=== PATIENT | female | born 1960 | race Caucasian/White ===

== ENCOUNTER → 2016-03-10 | Outpatient (CLI) | payer OTHER ==
--- NOTE | 2016-03-10 12:16 | REPMRS ---
Patient History The patient states she had a clinical breast exam in 03/10 Patient is postmenopausal and is nulliparous. No known family history of cancer. Digital Woman Screen Mammo: March 10, 2016 - Exam #: [id number] Bilateral CC and MLO view(s) were taken. Technologist: Nancy Herrera, Technologist Prior study comparison: February 05, 2015, digital woman screen mammo performed at [facility]. July 15, 2010, digital bilateral screening mammo, performed at [facility]. April 03, 2009, digital bilateral screening mammo, performed at [facility]. FINDINGS: There are scattered fibroglandular densities. There has been no change in the appearance of the mammogram from the prior studies. There is a mild amount of scattered fibroglandular density which is fairly symmetric. There is no interval development of dominant mass, architectural distortion, or clustered microcalcification suggestive of malignancy. ASSESSMENT: BI-RADS/ACR category 1 mammogram. Negative. Recommendation Routine screening mammogram in 1 year (for women over age 40). This mammogram was interpreted with the aid of an FDA-approved computer-aided dectection system. Electronically Signed By: Ludwin Bentley MD 03/10/16 4425
== END ==
LOC: M WHC 11:00
PROVIDERS: ATTEND Family Medicine
DX: Z12.39 Encounter for other screening for malignant neoplasm of breast (principal)

== ENCOUNTER → 2016-07-28 | Outpatient (REF) | payer OTHER | LOC: M SFHCPLAZ 13:25 | PROVIDERS: ATTEND Family Medicine | DX: E03.9 Hypothyroidism, unspecified (principal) ==

== ENCOUNTER → 2016-09-15 | Outpatient (CLI) | payer OTHER ==
[2016-09-15 11:41] LABS: FREE T4 1.35 NG/DL (0.76-1.46)
--- NOTE | 2016-09-16 01:37 | REP ---
Clinical: Spondylosis. Technique: AP, lateral, flexion/extension, bilateral oblique, and open-mouth views of the cervical spine. Comparison: 01/10/2013. Findings: Alignment and lordosis maintained. No acute fracture / compression injury or subluxation. Advanced multilevel degenerative disc osteophyte complexes noted predominantly at C4-5, C5-6, C6-7 levels. Findings include osteophytosis, endplate sclerosis/irregularity with disc space narrowing and uncovertebral hypertrophy. Open mouth view demonstrates normal C1-C2 articulation and odontoid process. Impression: Advanced degenerative changes at C4-5 through C6-7. Signed by Rocco Kam MD 09/16/2016 01:28 A
== END ==
LOC: M LAB 10:19
PROVIDERS: ATTEND Family Medicine
DX: M43.02 Spondylolysis, cervical region (principal); M50.30 Other cervical disc degeneration, unspecified cervical region

== ENCOUNTER 2017-03-30 10:45 | Outpatient (RCR) | payer OTHER | END 2017-04-21 | LOC: M PT 10:45 | DX: Z51.89 Encounter for other specified aftercare (principal); M43.02 Spondylolysis, cervical region; M47.816 Spondylosis without myelopathy or radiculopathy, lumbar region | CPT/HCPCS: 97010 ==

== ENCOUNTER 2017-04-27 15:49 | Outpatient (RCR) | payer OTHER | END 2017-05-22 | LOC: M PT 05-04 10:59 | DX: Z51.89 Encounter for other specified aftercare (principal); M43.02 Spondylolysis, cervical region; M47.816 Spondylosis without myelopathy or radiculopathy, lumbar region | CPT/HCPCS: 97010 ==

== ENCOUNTER 2017-05-25 14:27 | Outpatient (RCR) | payer OTHER | END 2017-06-21 | LOC: M PT 14:27 | DX: Z51.89 Encounter for other specified aftercare (principal); M43.02 Spondylolysis, cervical region; M47.816 Spondylosis without myelopathy or radiculopathy, lumbar region | CPT/HCPCS: 97010 ==

== ENCOUNTER 2017-08-20 15:30 | Emergency (ER) | payer OTHER, MEDICAID | END 2017-08-20 18:11 | disposition home or self-care (01) | LOC: M ED 15:30 | DX: J06.9 Acute upper respiratory infection, unspecified (principal); Z87.891 Personal history of nicotine dependence; Z79.899 Other long term (current) drug therapy | CPT/HCPCS: 99282 ==

== ENCOUNTER → 2017-11-02 | Outpatient (CLI) | payer OTHER ==
[2017-11-02 12:31] LABS: ALBUMIN 3.8 GM/DL (3.2-5.2); ALKALINE PHOSPHATASE 70 U/L (45-117); ALT/SGPT 16 U/L (12-78); ANION GAP 7 MEQ/L (8-16); AST/SGOT 22 U/L (7-37); BILIRUBIN,TOTAL 0.4 MG/DL (0.2-1.0); BLOOD UREA NITROGEN 16 MG/DL (7-18); C REACTIVE PROTEIN QUANTITATIV < 0.30 MG/DL (0.00-0.30); CARBON DIOXIDE LEVEL 25 MEQ/L (21-32); CHLORIDE LEVEL 107 MEQ/L (98-107); CHOLESTEROL LEVEL 228 MG/DL (<200); CHOLESTEROL RISK RATIO 2.533 (<5); CREATININE FOR GFR 0.67 MG/DL (0.55-1.30); FREE T4 1.36 NG/DL (0.76-1.46); GLOMERULAR FILTRATION RATE > 60.0 (>51); GLUCOSE, FASTING 84 MG/DL (70-100); HDL CHOLESTEROL 90 MG/DL (>40); LDL CHOLESTEROL 122 MG/DL (<100); NON-HDL-C 138 MG/DL; POTASSIUM SERUM 4.2 MEQ/L (3.5-5.1); PTH INTACT 63.2 PG/ML (18.5-88.0); SODIUM LEVEL 139 MEQ/L (136-145); THYROID STIMULATING HORMONE 0.391 uIU/ML (0.358-3.740); TRIGLYCERIDES LEVEL 80 MG/DL (<150)
[2017-11-02 13:59] LABS: ALBUMIN/GLOBULIN RATIO 1.19 (1.00-1.93)
== END ==
LOC: M LAB 10:21
DX: E55.9 Vitamin D deficiency, unspecified (principal); E03.9 Hypothyroidism, unspecified
CPT/HCPCS: 84443

== ENCOUNTER 2018-02-01 07:27 | Day surgery (SDC) | payer OTHER ==
[~2018-02-01] VITALS: Ht 157.5 cm; Wt 74.4 kg
[~2018-02-01 07:27] MED LIST: CALC500T36 PO; FLON1SPR NARES; LEVO100T5 PO; MUCI600T31 PO; MUCI600T37 PO; MULTCAP PO; NS 1,000 ML IV ONE; VITA2000 PO; VITA500C24 PO; VITATAB11 PO; ZITHTAB PO
[2018-02-01] MEDS ORDERED: PROPOFOL 200 MG/20 ML VIAL As Ordered ONE (08:21)
--- NOTE | 2018-02-01 08:36 | ROOR ---
Patient Name: Melly Terrell Procedure Date: 02/01/2018 8:19 AM Date of : 1960 Age: 57 Room: [facility] Gender: Female Note Status: Finalized Procedure: Colonoscopy Indications: Screening for colorectal malignant neoplasm Providers: Daniel VIEIRA MD Referring MD: Parvez Squires MD Requesting Provider: Medicines: Monitored Anesthesia Care Complications: No immediate complications. Procedure: Pre-Anesthesia Assessment: - The heart rate, respiratory rate, oxygen saturations, blood pressure, adequacy of pulmonary ventilation, and response to care were monitored throughout the procedure. The Colonoscope was introduced through the anus and advanced to the terminal ileum, with identification of the appendiceal orifice and IC valve. The colonoscopy was performed without difficulty. The patient tolerated the procedure well. The quality of the bowel preparation was excellent. Findings: The perianal and digital rectal examinations were normal. A few diverticula were found in the sigmoid colon. The entire examined colon appeared normal on direct and retroflexion views. Retroflexion in the right colon was performed. Impression: - Mild diverticulosis in the sigmoid colon. - The entire colon is otherwise normal on direct and retroflexion views. - No specimens collected. Recommendation: - Repeat colonoscopy in 10 years for screening purposes. Daniel Vieira MD Daniel VIEIRA MD 02/01/2018 8:35:54 AM This report has been signed electronically. Number of Addenda: 0 Note Initiated On: 02/01/2018 8:19 AM Estimated Blood Loss: Estimated blood loss: none.
[2018-02-01 09:05] VITALS: BP 114/58
== END 2018-02-01 09:16 | disposition home or self-care (01) ==
LOC: M OPP 07:27
PROVIDERS: ATTEND Internal Medicine Gastroenterology
DX: K57.30 Diverticulosis of large intestine without perforation or abscess without bleeding (principal); Z12.11 Encounter for screening for malignant neoplasm of colon

== ENCOUNTER → 2018-02-19 | Outpatient (CLI) | payer OTHER ==
[~2018-02-19] MED LIST changes: -NS 1,000 ML IV ONE
[2018-02-19 09:56] LABS: FREE T4 1.16 NG/DL (0.76-1.46); THYROID STIMULATING HORMONE 1.09 uIU/ML (0.358-3.740)
== END ==
LOC: M LAB 08:31
PROVIDERS: ATTEND Family Medicine
DX: E03.9 Hypothyroidism, unspecified (principal)

== ENCOUNTER → 2018-03-15 | Outpatient (CLI) | payer OTHER ==
--- NOTE | 2018-03-15 15:34 | REPMRS ---
Patient History The patient states she has not had a clinical breast exam in over a year. Patient is postmenopausal and is nulliparous. No known family history of cancer. No Hormone Replacement Therapy Digital Woman Screen Mammo: March 15, 2018 - Exam #: [id number] Bilateral CC and MLO view(s) were taken. Technologist: Stephanie Brown, Technologist Prior study comparison: March 10, 2016, digital woman screen mammo performed at [facility]. February 05, 2015, digital woman screen mammo performed at [facility]. July 15, 2010, digital bilateral screening mammo, performed at [facility]. FINDINGS: There are scattered fibroglandular densities. There are two stable benign nodules in the left lateral breast. There has been no change in the appearance of the mammogram from the prior studies. There is a mild amount of scattered fibroglandular density which is fairly symmetric. There is no interval development of dominant mass, architectural distortion, or clustered microcalcification suggestive of malignancy. 3-D tomosynthesis shows no additional findings. Assessment: BI-RADS/ACR category 2 mammogram. Benign Findings. Recommendation Routine screening mammogram of both breasts in 1 year (for women over age 40). This patient's Lifetime Breast Cancer RIsk is estimated at 10.9 %. This mammogram was interpreted with the aid of an FDA-approved computer-aided dectection system. Electronically Signed By: Ludwin Bentley MD 03/15/18 5827
== END ==
LOC: M WHC 11:37
PROVIDERS: ATTEND Family Medicine
DX: Z12.31 Encounter for screening mammogram for malignant neoplasm of breast (principal); Z78.0 Asymptomatic menopausal state; N63.20 Unspecified lump in the left breast, unspecified quadrant

== ENCOUNTER → 2018-08-23 | Outpatient (CLI) | payer OTHER ==
[~2018-08-23] MED LIST changes: -CALC500T36 PO; +CALC500T61 PO
--- NOTE | 2018-08-30 13:33 | DEXA ---
AP SPINE L1 - L4 1.067 -1.0 0.1 LT FEMUR TOTAL 0.993 -0.1 0.8 LT NECK 0.888 -1.1 0.1 RT FEMUR TOTAL 0.936 -0.6 0.3 RT NECK 0.848 -1.4 -0.2 TOTAL BODY TOTAL OTHER COMMENTS: There is low bone density of the spine and hips. The increased density of the left hip does not represent a significant change. The increased density of the right hip does not represent a significant change. The density of the spine has decreased 6.3% since the initial exam on 09/04/2009. The spine density has increased 0.0% since the most recent exam on 02/26/2015. The density of the left hip has decreased 3.3% since the initial exam on 09/04/2009. The density of the left hip has increased 1.3% since the most recent exam on 02/26/2015. The density of the right hip has decreased 1.0% since the initial exam on 09/04/2009. The density of the right hip has increased 1.2% since the most recent exam on 02/26/2015. FOLLOW-UP: Recommendation for the next bone density exam: 2 years. BIBI
== END ==
LOC: M WHC 10:28
PROVIDERS: ATTEND Family Medicine
DX: M85.851 Other specified disorders of bone density and structure, right thigh (principal); M85.852 Other specified disorders of bone density and structure, left thigh; M85.88 Other specified disorders of bone density and structure, other site

== ENCOUNTER 2018-10-10 17:02 | Emergency (ER) | payer OTHER ==
[~2018-10-10] VITALS: Ht 157.5 cm; Wt 75.0 kg
[2018-10-10 21:01] VITALS: BP 132/81
[2018-10-10] MEDS ORDERED: PRED10TA2 PO (21:03)
[2018-10-10] MEDS ORDERED: diphenhydrAMINE 25 MG CAP PO ONE (21:15)
[2018-10-10] MEDS ORDERED: HYDROCORTISONE 1% CREAM 30 GM TOP ONE (21:15)
[2018-10-10] MEDS ORDERED: predniSONE 10 MG TAB PO ONE (21:15)
[2018-10-10] MEDS ORDERED: CETIRIZINE (ZyrTEC) 10 MG TAB PO ONE (21:15)
== END 2018-10-10 22:24 | disposition home or self-care (01) ==
LOC: M ED 17:02
DX: S80.861A Insect bite (nonvenomous), right lower leg, initial encounter (principal); W57.XXXA Bitten or stung by nonvenomous insect and other nonvenomous arthropods, initial encounter; Y92.89 Other specified places as the place of occurrence of the external cause; Z79.899 Other long term (current) drug therapy; Z79.890 Hormone replacement therapy; Z87.891 Personal history of nicotine dependence

== ENCOUNTER → 2019-08-08 | Outpatient (CLI) | payer OTHER ==
[~2019-08-08] MED LIST changes: +LEVO500T3; +MECL-86; +PRED10TA2 PO
[2019-08-08 15:11] LABS: BASO # 0.1 10^3/uL (0.0-0.2); BASO % 0.9 % (0.0-1.0); EOS # 0.1 10^3/uL (0.0-0.5); EOS % 1.5 % (0.0-3.0); HEMATOCRIT 40.8 % (36.0-47.0); LYMPH # 2.3 10^3/uL (1.5-5.0); LYMPH % 33.8 % (24.0-44.0); MEAN CORPUSCULAR HEMOGLOBIN 28.8 pg (27.0-33.0); MEAN CORPUSCULAR HGB CONC 31.9 g/dl (32.0-36.5); MEAN CORPUSCULAR VOLUME 90.5 fl (80.0-96.0); MONO # 0.5 10^3/uL (0.0-0.8); MONO % 6.8 % (0.0-5.0); NEUTROPHILS # 3.9 10^3/uL (1.5-8.5); NEUTROPHILS % 56.7 % (36.0-66.0); PLATELET COUNT, AUTOMATED 262 10^3/uL (150-450); RED BLOOD COUNT 4.51 10^6/uL (4.00-5.40); WHITE BLOOD COUNT 6.8 10^3/uL (4.0-10.0)
[2019-08-08 15:31] LABS: HEMOGLOBIN A1c 5.6 %
[2019-08-08 15:41] LABS: ALBUMIN 3.8 GM/DL (3.2-5.2); ALT/SGPT 21 U/L (12-78); BILIRUBIN,TOTAL 0.3 MG/DL (0.2-1.0); BLOOD UREA NITROGEN 14 MG/DL (7-18); CALCIUM LEVEL 9.2 MG/DL (8.8-10.2); CARBON DIOXIDE LEVEL 29 MEQ/L (21-32); CHLORIDE LEVEL 103 MEQ/L (98-107); CHOLESTEROL LEVEL 245 MG/DL (<200); CHOLESTEROL RISK RATIO 3.223 (<5); CREATININE FOR GFR 0.76 MG/DL (0.55-1.30); FREE T4 1.39 NG/DL (0.76-1.46); GLOMERULAR FILTRATION RATE > 60.0 (>45); GLUCOSE, FASTING 81 MG/DL (70-100); HDL CHOLESTEROL 76 MG/DL (>40); LDL CHOLESTEROL 143 MG/DL (<100); NON-HDL-C 169 MG/DL; POTASSIUM SERUM 4.5 MEQ/L (3.5-5.1); SODIUM LEVEL 138 MEQ/L (136-145); THYROID STIMULATING HORMONE 0.262 uIU/ML (0.358-3.740); TOTAL PROTEIN 7.4 GM/DL (6.4-8.2); TRIGLYCERIDES LEVEL 128 MG/DL (<150)
[2019-08-08 15:44] LABS: PTH INTACT 60.4 PG/ML (18.5-88.0); TOTAL 25(OH) VITAMIN D 51.6 NG/ML (30.0-100.0); VITAMIN B12 LEVEL 1618 PG/ML (247-911)
== END ==
LOC: M PLALAB 12:16
PROVIDERS: ATTEND Family Medicine
DX: E78.00 Pure hypercholesterolemia, unspecified (principal); E55.9 Vitamin D deficiency, unspecified; E03.9 Hypothyroidism, unspecified

== ENCOUNTER → 2019-10-17 | Outpatient (CLI) | payer OTHER ==
[~2019-10-17] MED LIST changes: -LEVO500T3; -MECL-86
--- NOTE | 2019-10-18 16:11 | REPMRS ---
Patient History The patient states she has not had a clinical breast exam in over a year. No known family history of cancer. No Hormone Replacement Therapy Digital Woman Screen Mammo: October 17, 2019 - Exam #: [id number] Bilateral CC and MLO view(s) were taken. Technologist: Linda Sanders, Technologist Prior study comparison: March 15, 2018, bilateral digital woman screen mammo performed at [facility]. March 10, 2016, digital woman screen mammo performed at [facility]. February 05, 2015, digital woman screen mammo performed at [facility]. FINDINGS: There are scattered fibroglandular densities. The Volpara volumetric breast density category is:B. There has been no change in the appearance of the mammogram from the prior studies. There is a mild amount of scattered fibroglandular density which is fairly symmetric. There is no interval development of dominant mass, architectural distortion, or grouped microcalcification suggestive of malignancy. 3-D tomosynthesis shows no additional findings. Assessment: BI-RADS/ACR category 1 mammogram. Negative Mammogram. Recommendation Routine screening mammogram of both breasts in 1 year (for women over age 40). This patient's Lifetime Breast Cancer Risk is estimated at 10.3 %. This mammogram was interpreted with the aid of an FDA-approved computer-aided dectection system. Electronically Signed By: Ludwin Bentley MD 10/18/19 1726
== END ==
LOC: M WHC 11:02
PROVIDERS: ATTEND Family Medicine
DX: Z12.31 Encounter for screening mammogram for malignant neoplasm of breast (principal)

== ENCOUNTER 2020-02-12 11:56 | Emergency (ER) | payer OTHER ==
[~2020-02-12] VITALS: Ht 157.5 cm; Wt 72.7 kg
[2020-02-12] MEDS ORDERED: MECL-86 (12:20)
[2020-02-12] MEDS ORDERED: LEVO500T3 (12:20)
--- NOTE | 2020-02-12 13:27 | REP ---
INDICATION: CVA - Nursing interventions must not delay CT COMPARISON: None. TECHNIQUE: Axial noncontrast images from the skull base to the thoracic inlet with coronal reformations. This CT examination was performed using the following dose reduction techniques: Automated exposure control, adjustment of mA and/or kv according to the patient's size, and use of iterative reconstruction technique. FINDINGS: Age-related atrophy and microvascular ischemic changes are appreciated. The ventricles and sulci are symmetric. Welch-white differentiation is maintained. There is no evidence for acute intracranial hemorrhage, mass/mass effect, pathology or infarction. No extra-axial fluid collection. Calvarium is intact. Paranasal sinuses and mastoid air cells are clear. IMPRESSION: Age related atrophy and microvascular ischemic changes. No acute intracranial hemorrhage, infarction, or mass/mass effect. <Electronically signed by Rocco Kam > 02/12/20 [id number]
--- NOTE | 2020-02-12 15:13 | REP ---
INDICATION: CVA. COMPARISON: None. TECHNIQUE: SINGLE PORTABLE AP VIEW OF THE CHEST WAS PERFORMED. FINDINGS: THERE IS NO ACUTE INFILTRATE OR PULMONARY EDEMA. LUNGS ARE CLEAR. HEART IS NOT SIGNIFICANTLY ENLARGED. MEDIASTINAL SILHOUETTE IS UNREMARKABLE. THE VISUALIZED OSSEOUS STRUCTURES ARE INTACT. IMPRESSION: NO ACUTE PULMONARY DISEASE. <Electronically signed by Sandro Welch > 02/12/20 [id number]
[2020-02-12 15:59] LABS: BASO # 0.1 10^3/uL (0.0-0.2); BASO % 0.7 % (0.0-1.0); EOS # 0.3 10^3/uL (0.0-0.5); EOS % 2.9 % (0.0-3.0); HEMATOCRIT 43.4 % (36.0-47.0); HEMOGLOBIN 13.5 g/dl (12.0-15.5); LYMPH # 3.1 10^3/uL (1.5-5.0); LYMPH % 31.8 % (24.0-44.0); MEAN CORPUSCULAR HEMOGLOBIN 28.1 pg (27.0-33.0); MEAN CORPUSCULAR HGB CONC 31.1 g/dl (32.0-36.5); MEAN CORPUSCULAR VOLUME 90.2 fl (80.0-96.0); MONO # 0.6 10^3/uL (0.0-0.8); MONO % 5.8 % (0.0-5.0); NEUTROPHILS # 5.8 10^3/uL (1.5-8.5); NEUTROPHILS % 58.5 % (36.0-66.0); PLATELET COUNT, AUTOMATED 306 10^3/uL (150-450); RED BLOOD COUNT 4.81 10^6/uL (4.00-5.40); WHITE BLOOD COUNT 9.9 10^3/uL (4.0-10.0)
[2020-02-12] MEDS: diazePAM 2 MG TAB PO ONE ×2 (16:00→16:48)
[2020-02-12 16:16] LABS: INR 0.89; PROTHROMBIN TIME 12.2 SECONDS (12.5-14.3)
[2020-02-12 16:17] LABS: PARTIAL THROMBOPLASTIN TIME 29.4 SECONDS (24.2-38.5)
[2020-02-12 17:29] LABS: BLOOD UREA NITROGEN 14 MG/DL (7-18); CREATININE FOR GFR 0.85 MG/DL (0.55-1.30); GLUCOSE, FASTING 82 MG/DL (70-100)
[2020-02-12 17:30] LABS: CALCIUM LEVEL 9.1 MG/DL (8.8-10.2); CARBON DIOXIDE LEVEL 27 MEQ/L (21-32); CHLORIDE LEVEL 106 MEQ/L (98-107); CK-MB VALUE MASS 2.2 NG/ML (<3.6); CPK CREATINE PHOSPHOKINASE 66 U/L (26-192); FREE T4 1.57 NG/DL (0.76-1.46); GLOMERULAR FILTRATION RATE > 60.0 (>45); MB/CK RELATIVE INDEX 3.33 (< OR =4); POTASSIUM SERUM 4.1 MEQ/L (3.5-5.1); SODIUM LEVEL 140 MEQ/L (136-145); TROPONIN I < 0.02 NG/ML (< 0.10)
[2020-02-12] MEDS ORDERED: ISOVUE-370 76% 100ML VIAL As Ordered ONE (17:42)
--- NOTE | 2020-02-12 18:45 | REPVR ---
PROCEDURE INFORMATION: Exam: CT Angiography Head With Contrast Exam date and time: 02/12/2020 4:44 PM Age: 59 years old Clinical indication: Dizziness and giddiness TECHNIQUE: Imaging protocol: Computed tomography angiography of the head with intravenous contrast. 3D rendering (Not supervised by radiologist): MIP and/or 3D reconstructed images were created by the technologist. Radiation optimization: All CT scans at this facility use at least one of these dose optimization techniques: automated exposure control; mA and/or kV adjustment per patient size (includes targeted exams where dose is matched to clinical indication); or iterative reconstruction. Contrast material: ISOVUE 370; Contrast volume: 100 ml; Contrast route: INTRAVENOUS (IV); COMPARISON: CT Head without contrast 02/12/2020 1:15 PM FINDINGS: Ventricles, cisterns and sulci are symmetric and appropriate for age. No intracranial mass or focal mass effect. No intracranial hemorrhage, midline shift or acute territorial infarct. Anterior circulation: Normal contrast opacification and luminal caliber in the petrous, cavernous and supraclinoid internal carotid arteries. Normal appearance of the anterior cerebral artery branches and middle cerebral artery branches through the MCA trifurcations. No occlusion, high-grade focal stenosis or dissection. No aneurysm. Posterior circulation: Normal distal vertebral arteries, with patent normal caliber basilar artery, and normal superior cerebellar and posterior cerebral arteries. No occlusion, high-grade stenosis or aneurysm. Dural sinuses enhance normally. Bony structures show no acute fracture or destructive process. IMPRESSION: Unremarkable CT Angiogram of the head and [place] of [place]. Electronically signed by: Felipe Meyers On 02/12/2020 18:45:27 PM
--- NOTE | 2020-02-12 18:55 | REPVR ---
PROCEDURE INFORMATION: Exam: CT Angiography Neck With Contrast Exam date and time: 02/12/2020 4:44 PM Age: 59 years old Clinical indication: Dizziness and giddiness TECHNIQUE: Imaging protocol: Computed tomography angiography of the neck with intravenous contrast. 3D rendering (Not supervised by radiologist): MIP and/or 3D reconstructed images were created by the technologist. Radiation optimization: All CT scans at this facility use at least one of these dose optimization techniques: automated exposure control; mA and/or kV adjustment per patient size (includes targeted exams where dose is matched to clinical indication); or iterative reconstruction. Contrast material: ISOVUE 370; Contrast volume: 100 ml; Contrast route: INTRAVENOUS (IV); COMPARISON: Thyroid, ST head+neck US 08/06/2015 11:44 AM FINDINGS: Right common carotid, cervical ICA and proximal ECA demonstrate contrast opacification with no occlusion, flow limiting stenosis, or intimal flap to suggest dissection. Left common carotid, cervical ICA and proximal ECA demonstrate contrast opacification, with no occlusion, flow limiting stenosis, or intimal flap to suggest dissection. Vertebral arteries demonstrate normal course to the level of the skull base and show no occlusion, flow limiting stenosis or dissection. No flow limiting stenosis or anomaly of the great vessel origins. No concerning asymmetric neck soft tissue abnormality. Multi-level cervical degenerative disc and articular pillar arthropathy is present. IMPRESSION: Unremarkable CT Angiogram of the neck. REFERENCES: NASCET CRITERIA. The degree of internal carotid artery stenosis is based on NASCET criteria. Normal is no stenosis. Mild is less than 50% stenosis. Moderate is 50-69% stenosis. Severe is 70% to 99% stenosis. Total occlusion is no detectable patent lumen. Electronically signed by: Felipe Meyers On 02/12/2020 18:55:26 PM
--- NOTE | 2020-02-12 20:08 | REPVR ---
PROCEDURE INFORMATION: Exam: MR Head Without Contrast Exam date and time: 02/12/2020 7:53 PM Age: 59 years old Clinical indication: Dizziness TECHNIQUE: Imaging protocol: MR of the head without contrast. COMPARISON: CT Head without contrast 02/12/2020 1:15 PM FINDINGS: No abnormal restriction of diffusion to indicate acute CVA. Midline structures and cerebellar tonsillar position appear normal. Ventricles, cisterns and sulci are symmetric and normal for age. No intracranial mass, midline shift or abnormal extra-axial fluid. No acute intracranial hemorrhage. No abnormal white matter signal on FLAIR and T2 sequences. Optic chiasm and pituitary infundibulum appear normal. Normal vascular flow voids in major intracranial arteries and dural venous sinuses. Paranasal sinuses are normally aerated. Right mastoids are opacified. Optic globes and orbits are unremarkable. IMPRESSION: Unremarkable noncontrast MRI of the brain. Electronically signed by: Felipe Meyers On 02/12/2020 20:08:17 PM
[2020-02-12 21:18] VITALS: BP 121/76
--- NOTE | 2020-02-13 00:35 | ECGEPIP ---
[facility] - ED Test Date: 2020-02-12 Pat Name: ERIS LAM Department: Room: - Gender: Female Family Support Specialist: : 1960 Requested By: ELIZABET Castellano Order Number: [id number] Reading MD: Jared Lopez Measurements Intervals [place] Rate: 62 P: 60 NC: 152 QRS: 55 QRSD: 87 T: 59 QT: 414 QTc: 422 Interpretive Statements SINUS RHYTHM NO PRIORS FOR COMPARISON Electronically Signed on 02-13-2020 0:35:18 EST by Jared Lopez
== END 2020-02-12 21:21 | disposition home or self-care (01) ==
LOC: M ED 11:56
DX: R42 Dizziness and giddiness (principal); F33.9 Major depressive disorder, recurrent, unspecified; E03.9 Hypothyroidism, unspecified; Z79.899 Other long term (current) drug therapy; Z79.890 Hormone replacement therapy
CPT/HCPCS: 36415; 70450; 70496; 70498; 70551; 71045; 80048; 81001; 82550; 82553; 84439; 84443; 85025; 85610; 85730; 93005; 93041; 94760; 99284; Q9967

== ENCOUNTER → 2020-04-29 | Outpatient (REF) | payer OTHER ==
[~2020-04-29] MED LIST changes: +LEVO500T3; +MECL-86
== END ==
LOC: M SFHCWAGY 14:38
PROVIDERS: ATTEND Family Medicine
DX: L81.4 Other melanin hyperpigmentation (principal)

== ENCOUNTER 2020-07-11 09:54 | Outpatient (RCR) | payer OTHER | END 2020-07-22 | LOC: M PT 09:54 | PROVIDERS: ATTEND Physician Assistant | DX: H81.13 Benign paroxysmal vertigo, bilateral (principal) ==

== ENCOUNTER → 2020-07-31 | Outpatient (REF) | payer OTHER ==
[2020-07-31 16:44] LABS: ALBUMIN 3.7 GM/DL (3.2-5.2); ALT/SGPT 13 U/L (12-78); BILIRUBIN,TOTAL 0.2 MG/DL (0.2-1.0); BLOOD UREA NITROGEN 17 MG/DL (7-18); C REACTIVE PROTEIN QUANTITATIV 0.33 MG/DL (0.00-0.30); CARBON DIOXIDE LEVEL 28 MEQ/L (21-32); CHLORIDE LEVEL 104 MEQ/L (98-107); CHOLESTEROL LEVEL 244 MG/DL (<200); CHOLESTEROL RISK RATIO 2.711 (<5); CREATININE FOR GFR 0.66 MG/DL (0.55-1.30); GLOMERULAR FILTRATION RATE > 60.0 (>45); GLUCOSE, FASTING 85 MG/DL (70-100); HDL CHOLESTEROL 90 MG/DL (>40); LDL CHOLESTEROL 136 MG/DL (<100); NON-HDL-C 154 MG/DL; POTASSIUM SERUM 4.4 MEQ/L (3.5-5.1); PTH INTACT 70.5 PG/ML (18.5-88.0); SODIUM LEVEL 140 MEQ/L (136-145); TOTAL 25(OH) VITAMIN D 37.6 NG/ML (30.0-100.0); TOTAL PROTEIN 7.3 GM/DL (6.4-8.2); TRIGLYCERIDES LEVEL 89 MG/DL (<150)
[2020-07-31 20:09] LABS: HEMOGLOBIN A1c 5.5 %
== END ==
LOC: M SFHCPLAZ 09:49
PROVIDERS: ATTEND Physician Assistant
DX: S40.862A Insect bite (nonvenomous) of left upper arm, initial encounter (principal); W57.XXXA Bitten or stung by nonvenomous insect and other nonvenomous arthropods, initial encounter; R73.01 Impaired fasting glucose; E03.9 Hypothyroidism, unspecified; E55.9 Vitamin D deficiency, unspecified; E78.00 Pure hypercholesterolemia, unspecified

== ENCOUNTER → 2020-12-02 | Outpatient (CLI) | payer OTHER ==
--- NOTE | 2020-12-02 11:38 | REPMRS ---
Patient History The patient states she has not had a clinical breast exam in over a year. Patient is postmenopausal and is nulliparous. No known family history of cancer. No Hormone Replacement Therapy Tomosynthesis is performed. Volpara breast density [facility] b[facility] Patient states no breast complaints today. Patient has signed MRS History Sheet. Digital Woman Screen Mammo: December 02, 2020 - Exam #: [id number] Bilateral CC and MLO view(s) were taken. Technologist: RT Brandi Prior study comparison: October 17, 2019, bilateral digital woman screen mammo performed at [facility]. March 15, 2018, bilateral digital woman screen mammo performed at [facility]. FINDINGS: There are scattered fibroglandular densities. There has been no change in the appearance of the mammogram from the prior studies. There is a mild amount of residual fibroglandular tissue which is fairly symmetric. There is no interval development of dominant mass, architectural distortion, or clustered microcalcification suggestive of malignancy. Assessment: BI-RADS/ACR category 1 mammogram. Negative Mammogram. Recommendation Routine screening mammogram in 1 year (for women over age 40). This mammogram was interpreted with the aid of an FDA-approved computer-aided dectection system. Electronically Signed By: Sandro Welch MD 12/02/20 1850
== END ==
LOC: M WHC 10:44
PROVIDERS: ATTEND Family Medicine
DX: Z12.31 Encounter for screening mammogram for malignant neoplasm of breast (principal)

== ENCOUNTER → 2021-02-04 | Outpatient (CLI) | payer OTHER ==
[2021-02-04 14:13] LABS: FREE T4 1.21 NG/DL (0.76-1.46); THYROID STIMULATING HORMONE 2.03 uIU/ML (0.358-3.740)
== END ==
LOC: M PLALAB 10:07
PROVIDERS: ATTEND Family Medicine
DX: E03.9 Hypothyroidism, unspecified (principal)

== ENCOUNTER → 2021-09-10 | Outpatient (CLI) | payer OTHER ==
[~2021-09-10] MED LIST changes: -LEVO500T3; +LEVO500T4
[2021-09-10 16:09] LABS: CREATININE, URINE 40.6 MG/DL; MALB URINE SIEMENS < 5.0 MG/L; MAU/CREAT RATIO 12.3 MCG/MG (0.0-30.0)
[2021-09-12 13:10] LABS: INSULIN LEVEL 3.4 uIU/mL (2.6-24.9)
== END ==
LOC: M RAD 12:31
PROVIDERS: ATTEND Family Medicine
DX: M43.02 Spondylolysis, cervical region (principal); M43.04 Spondylolysis, thoracic region; E03.9 Hypothyroidism, unspecified; R73.01 Impaired fasting glucose; J30.9 Allergic rhinitis, unspecified; E78.00 Pure hypercholesterolemia, unspecified; E55.9 Vitamin D deficiency, unspecified

== ENCOUNTER → 2021-09-15 | Outpatient (REF) | payer OTHER ==
[2021-09-15 14:40] LABS: ALBUMIN 3.6 GM/DL (3.2-5.2); ALT/SGPT 13 U/L (12-78); BILIRUBIN,TOTAL 0.4 MG/DL (0.2-1.0); BLOOD UREA NITROGEN 14 MG/DL (7-18); C REACTIVE PROTEIN QUANTITATIV 0.44 MG/DL (0.00-0.30); CALCIUM LEVEL 9.4 MG/DL (8.8-10.2); CARBON DIOXIDE LEVEL 27 MEQ/L (21-32); CHLORIDE LEVEL 108 MEQ/L (98-107); CHOLESTEROL LEVEL 250 MG/DL (<200); CHOLESTEROL RISK RATIO 3.246 (<5); CREATININE FOR GFR 0.71 MG/DL (0.55-1.30); FREE T4 1.23 NG/DL (0.76-1.46); GLOMERULAR FILTRATION RATE > 60.0 (>45); GLUCOSE, FASTING 94 MG/DL (70-100); HDL CHOLESTEROL 77 MG/DL (>40); LDL CHOLESTEROL 154 MG/DL (<100); NON-HDL-C 173 MG/DL; POTASSIUM SERUM 4.9 MEQ/L (3.5-5.1); SODIUM LEVEL 141 MEQ/L (136-145); THYROID STIMULATING HORMONE 0.225 uIU/ML (0.358-3.740); TOTAL PROTEIN 6.7 GM/DL (6.4-8.2); TRIGLYCERIDES LEVEL 97 MG/DL (<150)
[2021-09-15 18:15] LABS: TOTAL 25(OH) VITAMIN D 63.8 NG/ML (30.0-100.0)
[2021-09-16 00:22] LABS: HEMOGLOBIN A1c 5.6 %
== END ==
LOC: M SFHCPLAZ 12:45
PROVIDERS: ATTEND Family Medicine
DX: E03.9 Hypothyroidism, unspecified (principal); E55.9 Vitamin D deficiency, unspecified; R73.01 Impaired fasting glucose

== ENCOUNTER → 2021-10-06 | Outpatient (CLI) | payer OTHER ==
[~2021-10-06] MED LIST changes: +LEVO1TAB39; -LEVO500T4
== END ==
LOC: M LAB 13:22
PROVIDERS: ATTEND Family Medicine
DX: J30.9 Allergic rhinitis, unspecified (principal); R73.01 Impaired fasting glucose; E55.9 Vitamin D deficiency, unspecified; E78.00 Pure hypercholesterolemia, unspecified

== ENCOUNTER → 2021-12-16 | Outpatient (CLI) | payer OTHER | LOC: M WHC 10:24 | PROVIDERS: ATTEND Family Medicine | DX: Z12.31 Encounter for screening mammogram for malignant neoplasm of breast (principal) ==

== ENCOUNTER → 2022-01-27 | Outpatient (CLI) | payer OTHER ==
[2022-01-27 14:39] LABS: CPK CREATINE PHOSPHOKINASE 38 U/L (34-145)
[2022-01-27 14:40] LABS: ALBUMIN 3.1 G/DL (3.2-5.2); ALKALINE PHOSPHATASE 65 U/L (46-116); ALT/SGPT 10 U/L (7.0-40); AST/SGOT 18 U/L (<34); BILIRUBIN,TOTAL 0.4 MG/DL (0.3-1.2); BLOOD UREA NITROGEN 14 MG/DL (9-23); CALCIUM LEVEL 8.7 MG/DL (8.3-10.6); CARBON DIOXIDE LEVEL 29 MMOL/L (20-31); CHLORIDE LEVEL 100 MMOL/L (98-107); CHOLESTEROL LEVEL 189 MG/DL (<200); CHOLESTEROL RISK RATIO 3.07 (<5); GLOMERULAR FILTRATION RATE > 60.0 (>45); GLUCOSE, FASTING 92 MG/DL (74-106); HDL CHOLESTEROL 61.4 MG/DL (>40); LDL CHOLESTEROL 110.8 MG/DL (<100); NON-HDL-C 128 MG/DL; POTASSIUM SERUM 4.8 MMOL/L (3.5-5.1); SODIUM LEVEL 137 MMOL/L (136-145); THYROID STIMULATING HORMONE 1.646 uIU/ML (0.55-4.78); TOTAL PROTEIN 6.6 G/DL (5.7-8.2); TRIGLYCERIDES LEVEL 84 MG/DL (<150)
[2022-01-27 14:41] LABS: FREE T4 1.45 NG/DL (0.89-1.76)
[2022-01-27 15:23] LABS: HEMOGLOBIN A1c 5.2 % (4.0-6.0)
[2022-01-28 08:09] LABS: APOLIPOPROTEIN B/A-1 RATIO 0.7 ratio (0.0-0.6); INSULIN LEVEL 4.3 uIU/mL (2.6-24.9)
== END ==
LOC: M PLALAB 10:09
PROVIDERS: ATTEND Family Medicine
DX: E03.9 Hypothyroidism, unspecified (principal); E55.9 Vitamin D deficiency, unspecified; E78.00 Pure hypercholesterolemia, unspecified; R73.01 Impaired fasting glucose

== ENCOUNTER → 2022-02-03 | Outpatient (CLI) | payer OTHER ==
[2022-02-03 11:55] LABS: BASO # 0.1 10^3/uL (0.0-0.2); BASO % 0.5 % (0.0-1.0); EOS # 0.1 10^3/uL (0.0-0.5); EOS % 0.9 % (0.0-3.0); HEMATOCRIT 37.9 % (36.0-47.0); HEMOGLOBIN 11.7 g/dl (12.0-15.5); LYMPH # 1.5 10^3/uL (1.5-5.0); MEAN CORPUSCULAR HEMOGLOBIN 27.1 pg (27.0-33.0); MEAN CORPUSCULAR HGB CONC 30.9 g/dl (32.0-36.5); MEAN CORPUSCULAR VOLUME 87.9 fl (80.0-96.0); MONO # 0.8 10^3/uL (0.0-0.8); MONO % 6.9 % (2.0-8.0); NEUTROPHILS # 8.5 10^3/uL (1.5-8.5); NEUTROPHILS % 77.3 % (36.0-66.0); PLATELET COUNT, AUTOMATED 444 10^3/uL (150-450); RED BLOOD COUNT 4.31 10^6/uL (4.00-5.40); WHITE BLOOD COUNT 10.9 10^3/uL (4.0-10.0)
[2022-02-03 12:27] LABS: ALBUMIN 2.9 G/DL (3.2-5.2); ALKALINE PHOSPHATASE 64 U/L (46-116); ALT/SGPT < 9 U/L (7.0-40); AST/SGOT 18 U/L (<34); BILIRUBIN,TOTAL 0.4 MG/DL (0.3-1.2); BLOOD UREA NITROGEN 15 MG/DL (9-23); CALCIUM LEVEL 8.7 MG/DL (8.3-10.6); CARBON DIOXIDE LEVEL 28 MMOL/L (20-31); CHLORIDE LEVEL 101 MMOL/L (98-107); CREATININE FOR GFR 0.77 MG/DL (0.55-1.30); GLOMERULAR FILTRATION RATE > 60.0 (>45); GLUCOSE, FASTING 86 MG/DL (74-106); POTASSIUM SERUM 4.6 MMOL/L (3.5-5.1); SODIUM LEVEL 137 MMOL/L (136-145); TOTAL PROTEIN 6.5 G/DL (5.7-8.2)
[2022-02-03 12:28] LABS: FREE T4 1.56 NG/DL (0.89-1.76)
[2022-02-03 12:41] LABS: ERYTHROCYTE SEDIMENTATION RATE 40 mm/hr (0-30)
[2022-02-03 13:57] LABS: MONO REFLEX EBV VCA IgM NEGATIVE (NEGATIVE)
[2022-02-04 16:09] LABS: EBV VIRAL CAPSID AG IgM <36.0 U/mL (0.0-35.9)
== END ==
LOC: M PLAIMG 09:03
PROVIDERS: ATTEND Physician Assistant
DX: R09.81 Nasal congestion (principal); R53.83 Other fatigue; R00.0 Tachycardia, unspecified; R10.9 Unspecified abdominal pain; E03.9 Hypothyroidism, unspecified

== ENCOUNTER → 2022-02-17 | Outpatient (CLI) | payer OTHER ==
[2022-02-17 15:22] LABS: BASO # 0.1 10^3/uL (0.0-0.2); BASO % 0.5 % (0.0-1.0); EOS % 0.1 % (0.0-3.0); HEMATOCRIT 39.1 % (36.0-47.0); HEMOGLOBIN 12.1 g/dl (12.0-15.5); LYMPH # 1.3 10^3/uL (1.5-5.0); LYMPH % 11.4 % (24.0-44.0); MEAN CORPUSCULAR HEMOGLOBIN 26.7 pg (27.0-33.0); MEAN CORPUSCULAR HGB CONC 30.9 g/dl (32.0-36.5); MEAN CORPUSCULAR VOLUME 86.1 fl (80.0-96.0); MONO # 0.7 10^3/uL (0.0-0.8); MONO % 5.7 % (2.0-8.0); NEUTROPHILS # 9.4 10^3/uL (1.5-8.5); PLATELET COUNT, AUTOMATED 562 10^3/uL (150-450); RED BLOOD COUNT 4.54 10^6/uL (4.00-5.40); WHITE BLOOD COUNT 11.5 10^3/uL (4.0-10.0)
[2022-02-17 15:33] LABS: ERYTHROCYTE SEDIMENTATION RATE 87 mm/hr (0-30)
[2022-02-17 15:48] LABS: ALBUMIN 2.7 G/DL (3.2-5.2); ALKALINE PHOSPHATASE 66 U/L (46-116); ALT/SGPT < 9 U/L (7.0-40); AST/SGOT 17 U/L (<34); BILIRUBIN,TOTAL 0.4 MG/DL (0.3-1.2); BLOOD UREA NITROGEN 13 MG/DL (9-23); CALCIUM LEVEL 8.8 MG/DL (8.3-10.6); CARBON DIOXIDE LEVEL 23 MMOL/L (20-31); CHLORIDE LEVEL 99 MMOL/L (98-107); CREATININE FOR GFR 0.59 MG/DL (0.55-1.30); GLOMERULAR FILTRATION RATE > 60.0 (>45); GLUCOSE, FASTING 71 MG/DL (74-106); POTASSIUM SERUM 4.7 MMOL/L (3.5-5.1); SODIUM LEVEL 136 MMOL/L (136-145); TOTAL PROTEIN 6.5 G/DL (5.7-8.2)
== END ==
LOC: M PLALAB 13:39 → M PLAIMG 13:39
PROVIDERS: ATTEND Family Medicine
DX: J90 Pleural effusion, not elsewhere classified (principal); J98.11 Atelectasis; J32.9 Chronic sinusitis, unspecified

== ENCOUNTER 2022-02-25 11:52 | Inpatient (IN) | payer OTHER ==
[~2022-02-25] VITALS: Ht 157.5 cm; Wt 73.9 kg
[~2022-02-25 11:52] MED LIST changes: -ASCO50TA PO; -CIPR500T39 PO; -FERR1TAB8 PO; -FURO20TA2 PO; -ISOVUE-370 76% 100ML VIAL As Ordered ONE; -LEVO1TAB40 PO; -MIRT1TAB16 PO; -PANT40TA29 PO; -POTA1TAB23 PO; -SENN-23 PO; -THERTAB52 PO; -VITA-168 PO
[2022-02-25 15:55] VITALS: BP 120/76
[2022-02-25 16:10] LABS: BASO # 0.1 10^3/uL (0.0-0.2); BASO % 0.7 % (0.0-1.0); EOS # 0.1 10^3/uL (0.0-0.5); EOS % 0.6 % (0.0-3.0); HEMATOCRIT 36.6 % (36.0-47.0); HEMOGLOBIN 11.6 g/dl (12.0-15.5); LYMPH # 1.3 10^3/uL (1.5-5.0); MEAN CORPUSCULAR HEMOGLOBIN 26.7 pg (27.0-33.0); MEAN CORPUSCULAR HGB CONC 31.7 g/dl (32.0-36.5); MEAN CORPUSCULAR VOLUME 84.1 fl (80.0-96.0); MONO # 0.9 10^3/uL (0.0-0.8); MONO % 7.6 % (2.0-8.0); NEUTROPHILS # 9.1 10^3/uL (1.5-8.5); NEUTROPHILS % 79.7 % (36.0-66.0); PLATELET COUNT, AUTOMATED 544 10^3/uL (150-450); RED BLOOD COUNT 4.35 10^6/uL (4.00-5.40); WHITE BLOOD COUNT 11.4 10^3/uL (4.0-10.0)
[2022-02-25 16:25] LABS: INR 1.13; PROTHROMBIN TIME 14.7 SECONDS (12.5-14.5)
[2022-02-25 16:33] LABS: ALBUMIN 2.4 G/DL (3.2-5.2); ALKALINE PHOSPHATASE 56 U/L (46-116); ALT/SGPT < 9 U/L (7.0-40); AST/SGOT 18 U/L (<34); BILIRUBIN,TOTAL 0.4 MG/DL (0.3-1.2); BLOOD UREA NITROGEN 8 MG/DL (9-23); CALCIUM LEVEL 8.7 MG/DL (8.3-10.6); CARBON DIOXIDE LEVEL 25 MMOL/L (20-31); CHLORIDE LEVEL 100 MMOL/L (98-107); CREATININE FOR GFR 0.65 MG/DL (0.55-1.30); GLOMERULAR FILTRATION RATE > 60.0 (>45); GLUCOSE, FASTING 88 MG/DL (74-106); POTASSIUM SERUM 4.1 MMOL/L (3.5-5.1); SODIUM LEVEL 137 MMOL/L (136-145); TOTAL PROTEIN 5.9 G/DL (5.7-8.2)
[2022-02-25 17:45] LABS: SOURCE, BODY FLUID ASCITES
[2022-02-25 17:46] LABS: APPEARANCE, BODY FLUID HAZY (CLEAR); ASCITES FL COLOR YELLOW (COLORLESS)
[2022-02-25 18:14] LABS: SOURCE, BODY FLUID ALBUMIN ASCITES
[2022-02-25 18:17] LABS: VENOUS BASE EXCESS 1.2 (-2.0-2.0); VENOUS HCO3 26.5 MEQ/L (23.0-27.0); VENOUS PARTIAL PRESSURE CO2 44.4 mmHg (38.0-50.0); VENOUS PARTIAL PRESSURE O2 41.3 mmHg (30.0-50.0); VENOUS PH 7.393 UNITS (7.330-7.430); VENOUS TOTAL CO2 27.8 MEQ/L (24.0-28.0)
[2022-02-25 18:18] LABS: SOURCE, BODY FLUID GLUCOSE ASCITES
[2022-02-25 18:21] LABS: SOURCE, BODY FLUID TOT PROTEIN ASCITES; TOTAL PROTEIN, BODY FLUID 4.3 G/DL (NOT ESTABLISHED)
[2022-02-25] MEDS ORDERED: LEVO1TAB40 PO (19:42)
[2022-02-25] MEDS ORDERED: THERTAB52 PO (19:42)
[2022-02-25] MEDS ORDERED: VITA-168 PO (19:44)
[2022-02-25] MEDS ORDERED: SENN-23 PO (19:47)
[2022-02-25] MEDS ORDERED: HOME MED LIST COMPLETE! XX SCH (19:50)
[2022-02-25 19:55] LABS: RSV AMPLIFICATION NEGATIVE (NEGATIVE)
[2022-02-25 19:56] VITALS: BP 101/66
[2022-02-25] MEDS ORDERED: PANT40TA29 PO (19:59)
[2022-02-25 20:00] VITALS: BP 100/64
[2022-02-26] VITALS (7 sets, daily range): BP systolic 97–119; BP diastolic 61–68
[2022-02-26 04:15] LABS: HEMOGLOBIN 10.5 g/dl (12.0-15.5); MEAN CORPUSCULAR HEMOGLOBIN 26.4 pg (27.0-33.0); MEAN CORPUSCULAR HGB CONC 31.8 g/dl (32.0-36.5); MEAN CORPUSCULAR VOLUME 82.9 fl (80.0-96.0); PLATELET COUNT, AUTOMATED 514 10^3/uL (150-450); RED BLOOD COUNT 3.98 10^6/uL (4.00-5.40); WHITE BLOOD COUNT 10.3 10^3/uL (4.0-10.0)
[2022-02-26] MEDS ORDERED: FLUTICASONE PROP 0.05% NASAL SPRAY 16 GM (FLONASE) NARES PRN (04:25)
[2022-02-26 04:37] LABS: BLOOD UREA NITROGEN 8 MG/DL (9-23); CALCIUM LEVEL 8.3 MG/DL (8.3-10.6); CARBON DIOXIDE LEVEL 26 MMOL/L (20-31); CHLORIDE LEVEL 101 MMOL/L (98-107); CREATININE FOR GFR 0.63 MG/DL (0.55-1.30); GLOMERULAR FILTRATION RATE > 60.0 (>45); GLUCOSE, FASTING 85 MG/DL (74-106); POTASSIUM SERUM 4.2 MMOL/L (3.5-5.1); SODIUM LEVEL 136 MMOL/L (136-145)
[2022-02-26] MEDS: LEVOTHYROXINE 100MCG TABLET (0.1MG) PO SCH (06:08)
[2022-02-26] MEDS: PANTOPRAZOLE 40MG TAB (PROTONIX) PO SCH (08:41)
[2022-02-26] MEDS: OYSTER SHELL CALCIUM 500 MG TAB PO SCH (08:41)
[2022-02-26] MEDS: cefTRIAXone SOD 1 GM in D5W MINI-BAG PLUS 50 ML IV SCH (08:41)
[2022-02-26] MEDS: VITAMIN D 1,000 INTERNATIONAL UNITS TABLET PO SCH (08:41)
[2022-02-26] MEDS ORDERED: ASCORBIC ACID 500 MG TAB PO SCH (09:00)
[2022-02-26 10:08] LABS: IRON (FE) 19 UG/DL (50-170); PERCENT SATURATION 9.4 % (13.2-45.0); TOTAL IRON BINDING CAPACITY 202 UG/DL (250-425)
[2022-02-26 10:10] LABS: FERRITIN 253.6 NG/ML (7.3-270.7); FOLATE > 24.0 NG/ML (>5.4)
[2022-02-26 10:13] LABS: VITAMIN B12 LEVEL > 2000 PG/ML (211-911)
[2022-02-26 15:39] LABS: PH BODY FLUID 7.596 UNITS (NOT ESTABLISHED); SOURCE, BODY FLUID pH PLEURAL
[2022-02-26 15:44] LABS: SOURCE, BODY FLUID PLEURAL
[2022-02-26 15:45] LABS: APPEARANCE, BODY FLUID HAZY (CLEAR); PLEURAL FL COLOR YELLOW (COLORLESS)
[2022-02-26 16:02] LABS: SOURCE, BODY FLUID GLUCOSE PLEURAL
[2022-02-26 16:04] LABS: AMYLASE, BODY FLUID < 20 U/L (NOT ESTABLISHED); LDH, BODY FLUID 340 U/L (NOT ESTABLISHED); SOURCE, BODY FLUID AMYLASE PLEURAL; SOURCE, BODY FLUID LDH PLEURAL
[2022-02-26 16:05] LABS: SOURCE, BODY FLUID TOT PROTEIN PLEURAL
[2022-02-26] MEDS ORDERED: RIVAROXABAN 10MG TAB (XARELTO) PO SCH (18:00)
[2022-02-27 01:00] VITALS: BP 102/59
[2022-02-27 02:51] VITALS: BP 97/59
[2022-02-27] MEDS: LEVOTHYROXINE 100MCG TABLET (0.1MG) PO SCH (06:00)
[2022-02-27 07:47] VITALS: BP 101/57
[2022-02-27 08:07] LABS: HEMATOCRIT 31.6 % (36.0-47.0); HEMOGLOBIN 10.2 g/dl (12.0-15.5); MEAN CORPUSCULAR HEMOGLOBIN 26.8 pg (27.0-33.0); MEAN CORPUSCULAR HGB CONC 32.3 g/dl (32.0-36.5); MEAN CORPUSCULAR VOLUME 83.2 fl (80.0-96.0); PLATELET COUNT, AUTOMATED 478 10^3/uL (150-450); WHITE BLOOD COUNT 9.9 10^3/uL (4.0-10.0)
[2022-02-27 08:31] LABS: BLOOD UREA NITROGEN 6 MG/DL (9-23); CALCIUM LEVEL 8.4 MG/DL (8.3-10.6); CARBON DIOXIDE LEVEL 26 MMOL/L (20-31); CHLORIDE LEVEL 103 MMOL/L (98-107); CREATININE FOR GFR 0.55 MG/DL (0.55-1.30); GLOMERULAR FILTRATION RATE > 60.0 (>45); GLUCOSE, FASTING 86 MG/DL (74-106); POTASSIUM SERUM 3.9 MMOL/L (3.5-5.1); SODIUM LEVEL 139 MMOL/L (136-145)
[2022-02-27] MEDS: VITAMIN D 1,000 INTERNATIONAL UNITS TABLET PO SCH (08:52)
[2022-02-27] MEDS: PANTOPRAZOLE 40MG TAB (PROTONIX) PO SCH (08:53)
[2022-02-27] MEDS: cefTRIAXone SOD 1 GM in D5W MINI-BAG PLUS 50 ML IV SCH (08:53)
[2022-02-27] MEDS ORDERED: ASCORBIC ACID 500 MG TAB PO SCH (09:00)
[2022-02-27] MEDS ORDERED: FERROUS SULFATE 325MG TAB PO SCH (09:00)
[2022-02-27] MEDS ORDERED: POTA1TAB23 PO (11:04)
[2022-02-27] MEDS ORDERED: CIPR500T39 PO (11:04)
[2022-02-27] MEDS ORDERED: FERR1TAB8 PO (11:04)
[2022-02-27] MEDS ORDERED: ASCO50TA PO (11:04)
[2022-02-27] MEDS ORDERED: FURO20TA2 PO (11:04)
[2022-02-27] MEDS ORDERED: MIRT1TAB16 PO (11:04)
[2022-02-27] MEDS: OYSTER SHELL CALCIUM 500 MG TAB PO SCH (11:17)
[2022-02-27 11:59] VITALS: BP 107/70
== END 2022-02-27 13:30 | disposition home or self-care (01) | DRG 143 ==
LOC: M PCU 15:08
PROVIDERS: ADMIT Family Medicine; ATTEND Family Medicine
PROC: 0W9G3ZZ Drainage of Peritoneal Cavity, Percutaneous Approach (ICD-10-PCS; principal; 2022-02-25 15:48)
PROC: 0W993ZZ Drainage of Right Pleural Cavity, Percutaneous Approach (ICD-10-PCS; 2022-02-26)
PROC: 30233J1 Transfusion of Nonautologous Serum Albumin into Peripheral Vein, Percutaneous Approach (ICD-10-PCS; 2022-02-26)
DX: J90 Pleural effusion, not elsewhere classified (principal); K65.2 Spontaneous bacterial peritonitis; R18.8 Other ascites; E03.9 Hypothyroidism, unspecified; R22.2 Localized swelling, mass and lump, trunk; D75.839 Thrombocytosis, unspecified; D50.9 Iron deficiency anemia, unspecified; L40.9 Psoriasis, unspecified; M43.02 Spondylolysis, cervical region; M85.88 Other specified disorders of bone density and structure, other site; E66.9 Obesity, unspecified; M79.2 Neuralgia and neuritis, unspecified; Z98.49 Cataract extraction status, unspecified eye; Z87.891 Personal history of nicotine dependence; Z79.890 Hormone replacement therapy; Z79.899 Other long term (current) drug therapy

== ENCOUNTER → 2022-02-25 | Outpatient (CLI) | payer OTHER ==
[~2022-02-25] MED LIST changes: +ASCO50TA PO; +CIPR500T39 PO; +FERR1TAB8 PO; +FURO20TA2 PO; +ISOVUE-370 76% 100ML VIAL As Ordered ONE; +LEVO1TAB40 PO; +MIRT1TAB16 PO; +PANT40TA29 PO; +POTA1TAB23 PO; +SENN-23 PO; +THERTAB52 PO; +VITA-168 PO
== END ==
LOC: M RAD 08:06
PROVIDERS: ATTEND Physician Assistant
DX: R06.02 Shortness of breath (principal); J18.9 Pneumonia, unspecified organism; R00.0 Tachycardia, unspecified; R79.82 Elevated C-reactive protein (CRP); J90 Pleural effusion, not elsewhere classified; R70.0 Elevated erythrocyte sedimentation rate; R14.0 Abdominal distension (gaseous); R10.84 Generalized abdominal pain

== ENCOUNTER → 2022-03-03 | Outpatient (CLI) | payer OTHER ==
[~2022-03-03] MED LIST changes: +ASCO50TA PO; +CIPR500T39 PO; +DEXA4TA; +FERR1TAB8 PO; +FURO20TA2 PO; +LEVO1TAB40 PO; +MIRT1TAB16 PO; +PANT40TA29 PO; +POTA1TAB23 PO; +SENN-23 PO; +THERTAB52 PO; +VITA-168 PO
[2022-03-03 14:07] LABS: BASO # 0.1 10^3/uL (0.0-0.2); EOS # 0.1 10^3/uL (0.0-0.5); EOS % 1.2 % (0.0-3.0); HEMATOCRIT 38.5 % (36.0-47.0); LYMPH # 1.3 10^3/uL (1.5-5.0); LYMPH % 12.1 % (24.0-44.0); MEAN CORPUSCULAR HEMOGLOBIN 26.1 pg (27.0-33.0); MEAN CORPUSCULAR HGB CONC 31.2 g/dl (32.0-36.5); MEAN CORPUSCULAR VOLUME 83.9 fl (80.0-96.0); MONO # 0.8 10^3/uL (0.0-0.8); MONO % 7.5 % (2.0-8.0); NEUTROPHILS # 8.1 10^3/uL (1.5-8.5); NEUTROPHILS % 77.8 % (36.0-66.0); PLATELET COUNT, AUTOMATED 450 10^3/uL (150-450); RED BLOOD COUNT 4.59 10^6/uL (4.00-5.40); WHITE BLOOD COUNT 10.4 10^3/uL (4.0-10.0)
[2022-03-03 14:51] LABS: MAGNESIUM LEVEL 1.8 MG/DL (1.8-2.4)
[2022-03-03 14:53] LABS: ALBUMIN 2.8 G/DL (3.2-5.2); ALKALINE PHOSPHATASE 57 U/L (46-116); ALT/SGPT < 9 U/L (7.0-40); AST/SGOT 19 U/L (<34); BILIRUBIN,TOTAL 0.4 MG/DL (0.3-1.2); BLOOD UREA NITROGEN 9 MG/DL (9-23); CALCIUM LEVEL 8.9 MG/DL (8.3-10.6); CARBON DIOXIDE LEVEL 26 MMOL/L (20-31); CHLORIDE LEVEL 99 MMOL/L (98-107); CREATININE FOR GFR 0.67 MG/DL (0.55-1.30); GLOMERULAR FILTRATION RATE > 60.0 (>45); GLUCOSE, FASTING 84 MG/DL (74-106); POTASSIUM SERUM 4.5 MMOL/L (3.5-5.1); SODIUM LEVEL 137 MMOL/L (136-145); TOTAL PROTEIN 6.2 G/DL (5.7-8.2)
== END ==
LOC: M PLALAB 11:44
PROVIDERS: ATTEND Family Medicine
DX: D50.9 Iron deficiency anemia, unspecified (principal); C56.1 Malignant neoplasm of right ovary; J90 Pleural effusion, not elsewhere classified; J98.11 Atelectasis

== ENCOUNTER → 2022-03-11 | Outpatient (REF) | payer OTHER ==
[2022-03-11 18:08] LABS: BASO # 0.1 10^3/uL (0.0-0.2); BASO % 0.7 % (0.0-1.0); EOS # 0.4 10^3/uL (0.0-0.5); EOS % 3.4 % (0.0-3.0); HEMATOCRIT 37.4 % (36.0-47.0); HEMOGLOBIN 11.4 g/dl (12.0-15.5); LYMPH % 16.3 % (24.0-44.0); MEAN CORPUSCULAR HEMOGLOBIN 26.1 pg (27.0-33.0); MEAN CORPUSCULAR HGB CONC 30.5 g/dl (32.0-36.5); MEAN CORPUSCULAR VOLUME 85.8 fl (80.0-96.0); MONO # 0.7 10^3/uL (0.0-0.8); NEUTROPHILS # 8.9 10^3/uL (1.5-8.5); PLATELET COUNT, AUTOMATED 465 10^3/uL (150-450); RED BLOOD COUNT 4.36 10^6/uL (4.00-5.40); WHITE BLOOD COUNT 12.2 10^3/uL (4.0-10.0)
[2022-03-11 18:15] LABS: INR 0.92; PROTHROMBIN TIME 12.6 SECONDS (12.5-14.5)
[2022-03-11 18:16] LABS: PARTIAL THROMBOPLASTIN TIME 24.9 SECONDS (24.8-34.2)
[2022-03-11 18:32] LABS: ALBUMIN 2.9 G/DL (3.2-5.2); ALKALINE PHOSPHATASE 63 U/L (46-116); ALT/SGPT 10 U/L (7.0-40); AST/SGOT 30 U/L (<34); BILIRUBIN,TOTAL 0.3 MG/DL (0.3-1.2); BLOOD UREA NITROGEN 13 MG/DL (9-23); CALCIUM LEVEL 8.8 MG/DL (8.3-10.6); CARBON DIOXIDE LEVEL 27 MMOL/L (20-31); CHLORIDE LEVEL 102 MMOL/L (98-107); CREATININE FOR GFR 0.71 MG/DL (0.55-1.30); GLOMERULAR FILTRATION RATE > 60.0 (>45); GLUCOSE, FASTING 87 MG/DL (74-106); POTASSIUM SERUM 4.2 MMOL/L (3.5-5.1); SODIUM LEVEL 138 MMOL/L (136-145); TOTAL PROTEIN 6.7 G/DL (5.7-8.2)
== END ==
LOC: M SFHCPLAZ 17:35
PROVIDERS: ATTEND Physician Assistant
DX: R14.0 Abdominal distension (gaseous) (principal)

== ENCOUNTER 2022-03-13 11:45 | Outpatient (CLI) | payer OTHER ==
[~2022-03-13] VITALS: Ht 157.5 cm; Wt 75.4 kg
[2022-03-13 11:45] VITALS: BP 107/64
[~2022-03-13 11:45] MED LIST changes: +ALBUTEROL SULFATE 2.5MG/0.5ML INH NEB SOLN INH PRN; +EPINEPHrine INJ 1 MG/ML 1ML AMP IM PRN; +IRON SUCROSE 500 MG in NS 250 ML OVER 4 HRS IV ONE; +NS 1,000 ML IV SCH; +diphenhydrAMINE 50MG/ML VIAL IV PRN; +methylPREDNISolone 125MG 2ML VIAL IV PRN
[2022-03-13 13:00] VITALS: BP 105/67
[2022-03-13 14:00] VITALS: BP 94/58
[2022-03-13 16:45] VITALS: BP 90/54
[2022-03-13 17:30] VITALS: BP 120/62
== END 2022-03-13 17:30 | disposition home or self-care (01) ==
LOC: M INFU 11:45
PROVIDERS: ATTEND Family Medicine
DX: D50.9 Iron deficiency anemia, unspecified (principal)
CPT/HCPCS: 96365; 96366; J1756

== ENCOUNTER → 2022-03-16 | Outpatient (CLI) | payer OTHER ==
[~2022-03-16] MED LIST changes: -ALBUTEROL SULFATE 2.5MG/0.5ML INH NEB SOLN INH PRN; +AMBI5TAB PO; -EPINEPHrine INJ 1 MG/ML 1ML AMP IM PRN; -IRON SUCROSE 500 MG in NS 250 ML OVER 4 HRS IV ONE; -NS 1,000 ML IV SCH; -diphenhydrAMINE 50MG/ML VIAL IV PRN; -methylPREDNISolone 125MG 2ML VIAL IV PRN
== END ==
LOC: M PLARAD 13:20
PROVIDERS: ATTEND Internal Medicine Medical Oncology
DX: C56.1 Malignant neoplasm of right ovary (principal); D50.9 Iron deficiency anemia, unspecified
CPT/HCPCS: 78815; A9552

== ENCOUNTER → 2022-03-19 | Outpatient (CLI) | payer OTHER | LOC: M LABSMTC 10:02 | PROVIDERS: ATTEND Anesthesiology | DX: Z11.52 Encounter for screening for COVID-19 (principal) ==

== ENCOUNTER 2022-03-20 09:35 | Outpatient (CLI) | payer OTHER ==
[~2022-03-20 09:35] MED LIST changes: +ALBUTEROL SULFATE 2.5MG/0.5ML INH NEB SOLN INH PRN; +EPINEPHrine INJ 1 MG/ML 1ML AMP IM PRN; +IRON SUCROSE 500 MG in NS 250 ML OVER 4 HRS IV ONE; +NS 1,000 ML IV SCH; +diphenhydrAMINE 50MG/ML VIAL IV PRN; +methylPREDNISolone 125MG 2ML VIAL IV PRN
[2022-03-20 09:52] VITALS: BP 99/58
[2022-03-20 11:15] VITALS: BP 96/53
[2022-03-20 12:15] VITALS: BP 99/56
[2022-03-20 13:15] VITALS: BP 96/64
[2022-03-20 14:50] VITALS: BP 100/68
== END 2022-03-20 14:50 | disposition home or self-care (01) ==
LOC: M INFU 09:35
PROVIDERS: ATTEND Family Medicine
DX: D50.9 Iron deficiency anemia, unspecified (principal)
CPT/HCPCS: 96365; 96366; J1756

== ENCOUNTER → 2022-03-23 | Outpatient (CLI) | payer OTHER ==
[~2022-03-23] MED LIST changes: -ALBUTEROL SULFATE 2.5MG/0.5ML INH NEB SOLN INH PRN; -EPINEPHrine INJ 1 MG/ML 1ML AMP IM PRN; -IRON SUCROSE 500 MG in NS 250 ML OVER 4 HRS IV ONE; +LIDOCAINE 1% MDV 20ML VIAL As Ordered ONE; +MIDAZOLAM INJ 2MG/2ML VIAL As Ordered ONE; +ceFAZolin 2 GM/D5W 50 ML IV BAG As Ordered ONE; +ceFAZolin SOD 2 GM in IV 1 EA IV ONE; +diphenhydrAMINE 50MG/ML VIAL As Ordered ONE; -diphenhydrAMINE 50MG/ML VIAL IV PRN; +fentaNYL 100 MCG/2 ML INJECTION As Ordered ONE; -methylPREDNISolone 125MG 2ML VIAL IV PRN
[2022-03-23 17:00] VITALS: BP 128/78
== END ==
LOC: M IRPRO 12:42
PROVIDERS: ATTEND Internal Medicine Medical Oncology
DX: R18.8 Other ascites (principal)
CPT/HCPCS: 36561; 99152; 99153; C1769; C1788; C1894; J0690; J1200; J1642; J1644; J2250; J3010

== ENCOUNTER → 2022-03-26 | Outpatient (REF) | payer OTHER ==
[~2022-03-26] MED LIST changes: -LIDOCAINE 1% MDV 20ML VIAL As Ordered ONE; -MIDAZOLAM INJ 2MG/2ML VIAL As Ordered ONE; -NS 1,000 ML IV SCH; -ceFAZolin 2 GM/D5W 50 ML IV BAG As Ordered ONE; -ceFAZolin SOD 2 GM in IV 1 EA IV ONE; -diphenhydrAMINE 50MG/ML VIAL As Ordered ONE; -fentaNYL 100 MCG/2 ML INJECTION As Ordered ONE
== END ==
LOC: M LAB REF 12:04
PROVIDERS: ATTEND Specialist
DX: R18.0 Malignant ascites (principal); R19.09 Other intra-abdominal and pelvic swelling, mass and lump

== ENCOUNTER 2022-03-27 09:45 | Outpatient (CLI) | payer OTHER ==
[~2022-03-27] VITALS: Ht 157.5 cm; Wt 71.3 kg
[2022-03-27 09:45] VITALS: BP 109/75
[~2022-03-27 09:45] MED LIST changes: +ALBUTEROL SULFATE 2.5MG/0.5ML INH NEB SOLN INH PRN; +EPINEPHrine INJ 1 MG/ML 1ML AMP IM PRN; +IRON SUCROSE 500 MG in NS 250 ML OVER 4 HRS IV ONE; +NS 1,000 ML IV ONE; +diphenhydrAMINE 50MG/ML VIAL IV PRN; +methylPREDNISolone 125MG 2ML VIAL IV PRN
[2022-03-27 12:00] VITALS: BP 105/75
[2022-03-27 14:20] VITALS: BP 102/58
== END 2022-03-27 14:20 | disposition home or self-care (01) ==
LOC: M INFU 09:45
PROVIDERS: ATTEND Family Medicine
DX: D50.9 Iron deficiency anemia, unspecified (principal)
CPT/HCPCS: 96365; 96366; J1756

== ENCOUNTER → 2022-04-07 | Outpatient (POV) | payer OTHER ==
[~2022-04-07] VITALS: Ht 157.5 cm; Wt 70.0 kg
[~2022-04-07] MED LIST changes: -ALBUTEROL SULFATE 2.5MG/0.5ML INH NEB SOLN INH PRN; -EPINEPHrine INJ 1 MG/ML 1ML AMP IM PRN; -IRON SUCROSE 500 MG in NS 250 ML OVER 4 HRS IV ONE; +LIDO1CRE42 TOP; -NS 1,000 ML IV ONE; -diphenhydrAMINE 50MG/ML VIAL IV PRN; -methylPREDNISolone 125MG 2ML VIAL IV PRN
[2022-04-07 13:35] VITALS: BP 124/63
== END ==
LOC: M IRPOV 13:16
PROVIDERS: ATTEND Radiology Diagnostic Radiology
DX: Z45.2 Encounter for adjustment and management of vascular access device (principal)

== ENCOUNTER → 2022-05-05 | Outpatient (CLI) | payer OTHER ==
[~2022-05-05] MED LIST changes: +GASTROGRAFIN SOLUTION 30ML As Ordered ONE; +ISOVUE-370 76% 100ML VIAL As Ordered ONE
== END ==
LOC: M RAD 13:56
PROVIDERS: ATTEND Colon & Rectal Surgery
DX: C56.1 Malignant neoplasm of right ovary (principal); Z79.899 Other long term (current) drug therapy

== ENCOUNTER → 2022-05-11 | Outpatient (CLI) | payer OTHER ==
[~2022-05-11] MED LIST changes: -GASTROGRAFIN SOLUTION 30ML As Ordered ONE; -ISOVUE-370 76% 100ML VIAL As Ordered ONE
== END ==
LOC: M PLALAB 11:17
PROVIDERS: ATTEND Family Medicine
DX: Z80.41 Family history of malignant neoplasm of ovary (principal)

== ENCOUNTER → 2022-08-06 | Outpatient (CLI) | payer OTHER ==
[~2022-08-06] MED LIST changes: +MAGO400T2 PO
[2022-08-06 14:24] LABS: THYROID STIMULATING HORMONE 29.358 uIU/ML (0.55-4.78)
[2022-08-06 14:26] LABS: FREE T4 1.14 NG/DL (0.89-1.76)
== END ==
LOC: M PLALAB 09:12
PROVIDERS: ATTEND Family Medicine
DX: E03.9 Hypothyroidism, unspecified (principal)

== ENCOUNTER 2022-08-26 13:47 | Observation (INO) | payer OTHER ==
[~2022-08-26] VITALS: Ht 157.5 cm; Wt 76.1 kg
[~2022-08-26 13:47] MED LIST changes: -LIDO1CRE42 TOP; +LIDO30CR18 TOP
[2022-08-26] MEDS ORDERED: NS 500 ML IV ONE (15:00)
[2022-08-26 15:02] LABS: HEMATOCRIT 33.4 % (36.0-47.0); HEMOGLOBIN 11.1 g/dl (12.0-15.5); MEAN CORPUSCULAR HEMOGLOBIN 31.6 pg (27.0-33.0); MEAN CORPUSCULAR HGB CONC 33.2 g/dl (32.0-36.5); MEAN CORPUSCULAR VOLUME 95.2 fl (80.0-96.0); PLATELET COUNT, AUTOMATED 113 10^3/uL (150-450); RED BLOOD COUNT 3.51 10^6/uL (4.00-5.40); WHITE BLOOD COUNT 16.6 10^3/uL (4.0-10.0)
[2022-08-26 15:16] LABS: INR 0.88; PROTHROMBIN TIME 12.1 SECONDS (12.5-14.5)
[2022-08-26 15:17] LABS: PARTIAL THROMBOPLASTIN TIME 24.5 SECONDS (24.8-34.2)
[2022-08-26 15:28] LABS: ATYPICAL LYMPH 5 % (0-5); LYMPHOCYTES 8 % (16-44); MONOCYTES 9 % (0-5); NEUTROPHILS 77 % (28-66)
[2022-08-26 15:29] LABS: PLATELET ESTIMATE NORMAL (NORMAL)
[2022-08-26 15:32] LABS: LIPASE 27 U/L (12-53)
[2022-08-26 15:33] LABS: CK-MB VALUE MASS < 1.0 NG/ML (<3.6)
[2022-08-26 15:35] LABS: ALBUMIN 3.7 G/DL (3.2-5.2); ALKALINE PHOSPHATASE 116 U/L (46-116); ALT/SGPT 12 U/L (7.0-40); AST/SGOT 23 U/L (<34); BILIRUBIN,DIRECT < 0.1 MG/DL (<0.4); BILIRUBIN,TOTAL 0.2 MG/DL (0.3-1.2); BLOOD UREA NITROGEN 15 MG/DL (9-23); CALCIUM LEVEL 8.7 MG/DL (8.3-10.6); CARBON DIOXIDE LEVEL 26 MMOL/L (20-31); CHLORIDE LEVEL 102 MMOL/L (98-107); CREATININE FOR GFR 0.58 MG/DL (0.55-1.30); GLOMERULAR FILTRATION RATE > 60.0 (>45); GLUCOSE, FASTING 86 MG/DL (74-106); POTASSIUM SERUM 3.9 MMOL/L (3.5-5.1); SODIUM LEVEL 139 MMOL/L (136-145); TOTAL PROTEIN 6.7 G/DL (5.7-8.2)
[2022-08-26 15:36] LABS: THYROID STIMULATING HORMONE 4.751 uIU/ML (0.55-4.78)
[2022-08-26 15:37] LABS: CPK CREATINE PHOSPHOKINASE 45 U/L (34-145); FREE T4 1.39 NG/DL (0.89-1.76); MB/CK RELATIVE INDEX 2.22 (< OR =4)
[2022-08-26] MEDS ORDERED: cefTRIAXone SOD 2 GM in D5W MINI-BAG PLUS 50 ML IV ONE (15:40)
[2022-08-26] MEDS ORDERED: ISOVUE-370 76% 100ML VIAL As Ordered ONE (15:55)
[2022-08-26] MEDS ORDERED: MED REC IN PROGRESS XX SCH (17:45)
[2022-08-26] MEDS ORDERED: LEVO125T4 PO (19:33)
[2022-08-26] MEDS ORDERED: LORA-622 PO (19:33)
[2022-08-26] MEDS ORDERED: RA T500C2 PO (19:33)
[2022-08-26] MEDS ORDERED: D-3-50003 PO (19:33)
[2022-08-26] MEDS ORDERED: MAGN400T33 PO (19:36)
[2022-08-26] MEDS ORDERED: HOME MED LIST COMPLETE! XX SCH (19:45)
[2022-08-26 20:27] LABS: MAGNESIUM LEVEL 1.4 MG/DL (1.8-2.4)
[2022-08-26] MEDS: MAGNESIUM OXIDE 400MG TAB (MAG-OX) PO SCH (20:55)
[2022-08-26 21:54] VITALS: BP 104/68; TEMP 97.9; O2SAT 99
[2022-08-26] MEDS ORDERED: NS 1,000 ML IV ONE (23:20)
[2022-08-27 05:59] LABS: BASO % 0.3 % (0.0-1.0); EOS % 0.3 % (0.0-3.0); HEMATOCRIT 28.8 % (36.0-47.0); HEMOGLOBIN 9.4 g/dl (12.0-15.5); LYMPH # 1.5 10^3/uL (1.5-5.0); LYMPH % 12.8 % (24.0-44.0); MEAN CORPUSCULAR HEMOGLOBIN 31.1 pg (27.0-33.0); MEAN CORPUSCULAR HGB CONC 32.6 g/dl (32.0-36.5); MEAN CORPUSCULAR VOLUME 95.4 fl (80.0-96.0); MONO # 0.9 10^3/uL (0.0-0.8); MONO % 8.1 % (2.0-8.0); NEUTROPHILS # 8.4 10^3/uL (1.5-8.5); NEUTROPHILS % 73.5 % (36.0-66.0); RED BLOOD COUNT 3.02 10^6/uL (4.00-5.40); WHITE BLOOD COUNT 11.4 10^3/uL (4.0-10.0)
[2022-08-27 06:03] LABS: PLATELET COUNT, AUTOMATED 92 10^3/uL (150-450)
[2022-08-27 06:30] VITALS: BP 100/66; TEMP 97.9; O2SAT 98
[2022-08-27 06:31] LABS: BLOOD UREA NITROGEN 13 MG/DL (9-23); CALCIUM LEVEL 8.1 MG/DL (8.3-10.6); CARBON DIOXIDE LEVEL 28 MMOL/L (20-31); CHLORIDE LEVEL 106 MMOL/L (98-107); CREATININE FOR GFR 0.63 MG/DL (0.55-1.30); GLOMERULAR FILTRATION RATE > 60.0 (>45); GLUCOSE, FASTING 83 MG/DL (74-106); SODIUM LEVEL 140 MMOL/L (136-145)
[2022-08-27] MEDS: LEVOTHYROXINE 125MCG TABLET (0.125MG) PO SCH (06:48)
[2022-08-27] MEDS: LORATADINE 10 MG TAB PO SCH (08:14)
[2022-08-27] MEDS: MAGNESIUM OXIDE 400MG TAB (MAG-OX) PO SCH ×2 (08:14→20:50)
[2022-08-27] MEDS: LACTOBACILLUS ACIDOPHILUS CAP (BACID) PO SCH ×2 (08:14→17:21)
[2022-08-27 14:00] VITALS: BP 106/70; TEMP 97.7; O2SAT 97
[2022-08-27] MEDS ORDERED: cefTRIAXone SOD 2 GM in D5W MINI-BAG PLUS 50 ML IV SCH (16:00)
[2022-08-27 21:40] VITALS: BP 98/72; TEMP 97.9; O2SAT 98
[2022-08-28 04:30] VITALS: BP 100/66; TEMP 97.7; O2SAT 98
[2022-08-28] MEDS: LEVOTHYROXINE 125MCG TABLET (0.125MG) PO SCH (05:09)
[2022-08-28 06:07] LABS: HEMATOCRIT 29.9 % (36.0-47.0); HEMOGLOBIN 9.7 g/dl (12.0-15.5); MEAN CORPUSCULAR HGB CONC 32.4 g/dl (32.0-36.5); MEAN CORPUSCULAR VOLUME 95.5 fl (80.0-96.0); PLATELET COUNT, AUTOMATED 107 10^3/uL (150-450); RED BLOOD COUNT 3.13 10^6/uL (4.00-5.40); WHITE BLOOD COUNT 8.7 10^3/uL (4.0-10.0)
[2022-08-28 06:33] LABS: BLOOD UREA NITROGEN 10 MG/DL (9-23); CALCIUM LEVEL 7.9 MG/DL (8.3-10.6); CARBON DIOXIDE LEVEL 28 MMOL/L (20-31); CHLORIDE LEVEL 107 MMOL/L (98-107); CREATININE FOR GFR 0.58 MG/DL (0.55-1.30); GLOMERULAR FILTRATION RATE > 60.0 (>45); GLUCOSE, FASTING 81 MG/DL (74-106); POTASSIUM SERUM 3.8 MMOL/L (3.5-5.1); SODIUM LEVEL 141 MMOL/L (136-145)
[2022-08-28 07:35] LABS: HYPOCHROMASIA 2+; LYMPHOCYTES 22 % (16-44); MONOCYTES 10 % (0-5); NEUTROPHILS 67 % (28-66)
[2022-08-28 07:36] LABS: ANISOCYTOSIS 1+; MICROCYTOSIS 1+; PLATELET ESTIMATE DECREASED (NORMAL)
[2022-08-28] MEDS: LORATADINE 10 MG TAB PO SCH (09:06)
[2022-08-28] MEDS: MAGNESIUM OXIDE 400MG TAB (MAG-OX) PO SCH (09:06)
[2022-08-28] MEDS: LACTOBACILLUS ACIDOPHILUS CAP (BACID) PO SCH (09:06)
[2022-08-28] MEDS ORDERED: RISATAB3 PO (09:37)
[2022-08-28] MEDS ORDERED: LEVO1TAB40 PO (09:37)
[2022-08-28] MEDS ORDERED: cefTRIAXone SOD 2 GM in D5W MINI-BAG PLUS 50 ML IV SCH (11:00)
[2022-08-31] MEDS ORDERED: MAGN400T33 PO (09:56)
== END 2022-08-28 12:12 | disposition home or self-care (01) ==
LOC: M ED 13:47 → M ED INP 13:48 → ENRESERV 20:47 → M MSPAV 21:48
PROVIDERS: ADMIT Internal Medicine Nephrology; ATTEND Internal Medicine Nephrology
DX: C56.1 Malignant neoplasm of right ovary (principal); R65.10 Systemic inflammatory response syndrome (SIRS) of non-infectious origin without acute organ dysfunction; R18.0 Malignant ascites; J90 Pleural effusion, not elsewhere classified; L40.9 Psoriasis, unspecified; E03.9 Hypothyroidism, unspecified; J30.9 Allergic rhinitis, unspecified; M47.812 Spondylosis without myelopathy or radiculopathy, cervical region; K57.90 Diverticulosis of intestine, part unspecified, without perforation or abscess without bleeding; R10.9 Unspecified abdominal pain; I95.1 Orthostatic hypotension; D72.829 Elevated white blood cell count, unspecified; D69.6 Thrombocytopenia, unspecified; E83.42 Hypomagnesemia; R53.83 Other fatigue; R06.09 Other forms of dyspnea; R53.81 Other malaise; Z79.899 Other long term (current) drug therapy; Z79.890 Hormone replacement therapy; Z87.891 Personal history of nicotine dependence; Z90.710 Acquired absence of both cervix and uterus; Z98.41 Cataract extraction status, right eye; Z98.42 Cataract extraction status, left eye; Z96.1 Presence of intraocular lens
CPT/HCPCS: 36415; 70450; 71046; 71275; 74177; 80048; 80076; 81001; 82550; 82553; 83605; 83690; 83735; 83880; 84439; 84443; 85025; 85049; 85055; 85610; 85730; 87040; 87077; 87086; 87486; 87581; 87633; 87798; 93005; 93041; 94760; 96361; 96365; 96366; 96376; 99285; J0696; Q9967

== ENCOUNTER → 2022-09-17 | Outpatient (CLI) | payer OTHER ==
[~2022-09-17] MED LIST changes: +D-3-50003 PO; +LEVO125T4 PO; +LORA-622 PO; +MAGN400T33 PO; +RA T500C2 PO; +RISATAB3 PO
[2022-09-17 13:37] LABS: FREE T4 1.78 NG/DL (0.89-1.76); THYROID STIMULATING HORMONE 0.801 uIU/ML (0.55-4.78)
== END ==
LOC: M PLALAB 09:28
PROVIDERS: ATTEND Family Medicine
DX: E03.9 Hypothyroidism, unspecified (principal)

== ENCOUNTER → 2022-12-23 | Outpatient (CLI) | payer OTHER | LOC: M WHC 11:43 | PROVIDERS: ATTEND Family Medicine | DX: Z12.31 Encounter for screening mammogram for malignant neoplasm of breast (principal); R92.323 Mammographic fibroglandular density, bilateral breasts ==

== ENCOUNTER → 2023-02-01 | Outpatient (REF) | payer OTHER ==
[2023-02-01 14:34] LABS: HEMOGLOBIN A1c 5.4 % (4.0-6.0)
[2023-02-01 16:09] LABS: ALBUMIN 3.7 G/DL (3.2-5.2); ALKALINE PHOSPHATASE 51 U/L (46-116); ALT/SGPT 15 U/L (7.0-40); AST/SGOT 19 U/L (<34); BILIRUBIN,TOTAL 0.4 MG/DL (0.3-1.2); BLOOD UREA NITROGEN 13 MG/DL (9-23); CARBON DIOXIDE LEVEL 26 MMOL/L (20-31); CHLORIDE LEVEL 103 MMOL/L (98-107); CHOLESTEROL LEVEL 254 MG/DL (<200); CHOLESTEROL RISK RATIO 2.79 (<5); FERRITIN 584.3 NG/ML (7.3-270.7); FREE T4 1.64 NG/DL (0.89-1.76); FREE THYROXINE INDEX 4.4 % (1.3-4.8); GLOMERULAR FILTRATION RATE > 60.0 (>45); GLUCOSE, FASTING 80 MG/DL (74-106); LDL CHOLESTEROL 145.4 MG/DL (<100); PTH INTACT 84.1 PG/ML (18.5-88.0); SODIUM LEVEL 138 MMOL/L (136-145); T UPTAKE 31.7 % (22.5-37.0); THYROID STIMULATING HORMONE 0.159 uIU/ML (0.55-4.78); TOTAL PROTEIN 6.8 G/DL (5.7-8.2); TRIGLYCERIDES LEVEL 88 MG/DL (<150); VITAMIN B12 LEVEL 1674 PG/ML (211-911)
[2023-02-01 16:12] LABS: TOTAL 25(OH) VITAMIN D 68.3 NG/ML (20.0-100.0)
== END ==
LOC: M LAB REF 13:33
PROVIDERS: ATTEND Family Medicine
DX: E03.9 Hypothyroidism, unspecified (principal); E55.9 Vitamin D deficiency, unspecified; R73.01 Impaired fasting glucose; D50.9 Iron deficiency anemia, unspecified

== ENCOUNTER → 2023-02-02 | Outpatient (CLI) | payer OTHER | LOC: M WHC 09:15 | PROVIDERS: ATTEND Family Medicine | DX: Z53.9 Procedure and treatment not carried out, unspecified reason (principal) ==

== ENCOUNTER → 2023-02-26 | Outpatient (CLI) | payer OTHER ==
[~2023-02-26] MED LIST changes: +GASTROGRAFIN SOLUTION 30ML As Ordered ONE; +ISOVUE-370 76% 100ML VIAL As Ordered ONE
== END ==
LOC: M RAD 15:29
PROVIDERS: ATTEND Specialist
DX: C56.9 Malignant neoplasm of unspecified ovary (principal); K76.0 Fatty (change of) liver, not elsewhere classified; K57.90 Diverticulosis of intestine, part unspecified, without perforation or abscess without bleeding; K43.9 Ventral hernia without obstruction or gangrene
CPT/HCPCS: 71260; 74177; Q9963; Q9967

== ENCOUNTER → 2023-10-05 | Outpatient (REF) | payer OTHER ==
[~2023-10-05] MED LIST changes: -GASTROGRAFIN SOLUTION 30ML As Ordered ONE; -ISOVUE-370 76% 100ML VIAL As Ordered ONE; +LEVO112T2
== END ==
LOC: M SFHCPLAZ 16:48
PROVIDERS: ATTEND Family Medicine
DX: D50.9 Iron deficiency anemia, unspecified (principal); E03.9 Hypothyroidism, unspecified; E78.00 Pure hypercholesterolemia, unspecified

== ENCOUNTER → 2023-10-05 | Outpatient (REF) | payer OTHER ==
[2023-10-05 11:53] LABS: BASO # 0.1 10^3/uL (0.0-0.2); BASO % 1.2 % (0.0-1.0); EOS # 0.4 10^3/uL (0.0-0.5); EOS % 6.3 % (0.0-3.0); HEMATOCRIT 42.5 % (36.0-47.0); HEMOGLOBIN 13.7 g/dl (12.0-15.5); LYMPH # 2.3 10^3/uL (1.5-5.0); LYMPH % 33.2 % (24.0-44.0); MEAN CORPUSCULAR HGB CONC 32.2 g/dl (32.0-36.5); MONO # 0.6 10^3/uL (0.0-0.8); MONO % 8.8 % (2.0-8.0); NEUTROPHILS # 3.5 10^3/uL (1.5-8.5); NEUTROPHILS % 50.2 % (36.0-66.0); PLATELET COUNT, AUTOMATED 213 10^3/uL (150-450); RED BLOOD COUNT 4.72 10^6/uL (4.00-5.40); WHITE BLOOD COUNT 6.9 10^3/uL (4.0-10.0)
[2023-10-05 12:30] LABS: CHOLESTEROL RISK RATIO 4.33 (<5); HDL CHOLESTEROL 69.9 MG/DL (>40); LDL CHOLESTEROL 210.7 MG/DL (<100); NON-HDL-C 233.1 MG/DL
[2023-10-05 12:32] LABS: FERRITIN 439.9 NG/ML (7.3-270.7); FREE T4 1.77 NG/DL (0.89-1.76); THYROID STIMULATING HORMONE 0.579 uIU/ML (0.55-4.78)
== END ==
LOC: M LAB REF 11:22
PROVIDERS: ATTEND Family Medicine
DX: D50.9 Iron deficiency anemia, unspecified (principal); E78.00 Pure hypercholesterolemia, unspecified; E03.9 Hypothyroidism, unspecified

== ENCOUNTER → 2023-11-24 | Outpatient (CLI) | payer OTHER ==
[~2023-11-24] MED LIST changes: +GASTROGRAFIN SOLUTION 30ML As Ordered ONE; +ISOVUE-370 76% 100ML VIAL As Ordered ONE; -LEVO112T2; +LEVO112T2 PO; +MAGN400T2 PO
== END ==
LOC: M RAD 09:09
PROVIDERS: ATTEND Internal Medicine Hematology & Oncology
DX: C56.9 Malignant neoplasm of unspecified ovary (principal); K76.0 Fatty (change of) liver, not elsewhere classified; K76.89 Other specified diseases of liver
CPT/HCPCS: 71260; 74177; Q9963; Q9967

== ENCOUNTER → 2023-12-17 | Outpatient (CLI) | payer OTHER ==
[~2023-12-17] MED LIST changes: -GASTROGRAFIN SOLUTION 30ML As Ordered ONE; -ISOVUE-370 76% 100ML VIAL As Ordered ONE
== END ==
LOC: M WHC 09:29
PROVIDERS: ATTEND Family Medicine
DX: M85.89 Other specified disorders of bone density and structure, multiple sites (principal)

== ENCOUNTER → 2024-01-14 | Outpatient (CLI) | payer OTHER | LOC: M WHC 12:49 | PROVIDERS: ATTEND Family Medicine | DX: Z12.31 Encounter for screening mammogram for malignant neoplasm of breast (principal); R92.323 Mammographic fibroglandular density, bilateral breasts ==

== ENCOUNTER → 2024-09-14 | Outpatient (CLI) | payer MEDICARE ==
[~2024-09-14] MED LIST changes: -AMBI5TAB PO; +CELE1CAP99; +CYCL5TAB4; +LORA-1164 PO; -LORA-622 PO; -RA T500C2 PO; +TURM500C10 PO; +ZOLP-532 PO
== END ==
LOC: M PLAIMG 14:49
DX: M47.817 Spondylosis without myelopathy or radiculopathy, lumbosacral region (principal); M54.32 Sciatica, left side

== ENCOUNTER → 2024-10-16 | Outpatient (REF) | payer MEDICARE ==
[2024-10-16 15:59] LABS: APPEARANCE, URINE HAZY (CLEAR); BACTERIA, URINE AUTO NEGATIVE (NEGATIVE); BILIRUBIN, URINE AUTO NEGATIVE (NEGATIVE); BLOOD, URINE BLOOD NEGATIVE (NEGATIVE); GLUCOSE, URINE (UA) AUTO NEGATIVE (NEGATIVE); KETONE, URINE AUTO NEGATIVE (NEGATIVE); LEUKOCYTE ESTERASE, URINE AUTO NEGATIVE (NEGATIVE); MUCUS, URINE SMALL (NEGATIVE); NITRITE, URINE AUTO NEGATIVE (NEGATIVE); PROTEIN, URINE AUTO NEGATIVE (NEGATIVE); RBC, URINE AUTO 1 /HPF (0-3); SPECIFIC GRAVITY URINE AUTO 1.018 (1.002-1.035); SQUAMOUS EPITHELIAL CELL UR AU 2 /HPF (0-6); UROBILINOGEN, URINE AUTO 0.2 mg/dL (0.0-2.0); WBC, URINE AUTO 3 /HPF (0-3)
== END ==
LOC: M SFHCPLAZ 15:15
PROVIDERS: ATTEND Nurse Practitioner Family
DX: R35.0 Frequency of micturition (principal)

== ENCOUNTER → 2024-11-02 | Outpatient (REF) | payer MEDICARE ==
[2024-11-02 09:12] LABS: ESTIMATED AVERAGE GLUCOSE 123.0 MG/DL (60-110)
[2024-11-02 09:17] LABS: C REACTIVE PROTEIN QUANTITATIV 1.01 MG/DL (<1.0); CHOLESTEROL LEVEL 205.0 MG/DL (<200); CHOLESTEROL RISK RATIO 3.86 (<5); CPK CREATINE PHOSPHOKINASE 27.0 U/L (34-145); LDL CHOLESTEROL 129.3 MG/DL (<100); NON-HDL-C 151.9 MG/DL; TRIGLYCERIDES LEVEL 113.0 MG/DL (<150)
[2024-11-02 09:18] LABS: VITAMIN B12 LEVEL 578.0 PG/ML (211-911)
[2024-11-02 09:19] LABS: FREE T4 1.7 NG/DL (0.89-1.76)
[2024-11-02 09:20] LABS: BASO # 0.1 10^3/uL (0.0-0.2); BASO % 0.9 % (0.0-1.0); EOS # 0.2 10^3/uL (0.0-0.5); EOS % 2.9 % (0.0-3.0); LYMPH # 1.8 10^3/uL (1.5-5.0); LYMPH % 26.5 % (24.0-44.0); MONO # 0.5 10^3/uL (0.0-0.8); MONO % 7.4 % (2.0-8.0); NEUTROPHILS # 4.3 10^3/uL (1.5-8.5); NEUTROPHILS % 62.2 % (36.0-66.0); PLATELET COUNT, AUTOMATED 275 10^3/uL (150-450)
[2024-11-06 09:37] LABS: INSULIN LEVEL 9.4 uIU/mL (<=18.4)
[2024-11-10 00:27] LABS: ALPHA 2-MACROGLOBULINS,QN 119 mg/dL (106-279); ALT (SGPT) P5P 7 U/L (6-29); APOLIPOPROTEIN A-1 172 mg/dL (101-198); FIBROSIS SCORE 0.03; FIBROSIS STAGE NO FIBROSIS (F0); GGT 9 U/L (3-65); HAPTOGLOBIN 216 mg/dL (43-212); NECROINFLAM ACT GRADE NO ACTIVITY (A0); NECROINFLAM ACT SCORE 0.01
== END ==
LOC: M LAB REF 08:19
PROVIDERS: ATTEND Family Medicine
DX: D50.9 Iron deficiency anemia, unspecified (principal); E78.00 Pure hypercholesterolemia, unspecified; E03.9 Hypothyroidism, unspecified; R73.01 Impaired fasting glucose; K76.0 Fatty (change of) liver, not elsewhere classified

== ENCOUNTER 2024-11-20 11:17 | Outpatient (RCR) | payer MEDICARE | END 2024-11-21 | LOC: M PT 11:17 | PROVIDERS: ATTEND Physician Assistant | DX: M47.816 Spondylosis without myelopathy or radiculopathy, lumbar region (principal) ==

== ENCOUNTER 2024-12-06 10:40 | Outpatient (RCR) | payer MEDICARE | END 2024-12-22 | LOC: M PT 10:40 | PROVIDERS: ATTEND Physician Assistant | DX: M47.816 Spondylosis without myelopathy or radiculopathy, lumbar region (principal) ==

== ENCOUNTER → 2024-12-18 | Outpatient (CLI) | payer MEDICARE ==
[~2024-12-18] MED LIST changes: +ISOVUE-370 76% 100 ML VIAL As Ordered ONE
== END ==
LOC: M RAD 13:40
PROVIDERS: ATTEND Nurse Practitioner Family
DX: C56.9 Malignant neoplasm of unspecified ovary (principal)
CPT/HCPCS: 71260; 74177; Q9967

== ENCOUNTER → 2024-12-27 | Outpatient (REF) | payer MEDICARE ==
[~2024-12-27] MED LIST changes: -ISOVUE-370 76% 100 ML VIAL As Ordered ONE
== END ==
LOC: M LAB REF 11:21
PROVIDERS: ATTEND Obstetrics & Gynecology Gynecologic Oncology
DX: C56.9 Malignant neoplasm of unspecified ovary (principal)

== ENCOUNTER → 2025-01-15 | Outpatient (CLI) | payer MEDICARE | LOC: M WHC 08:39 | PROVIDERS: ATTEND Family Medicine | DX: Z12.31 Encounter for screening mammogram for malignant neoplasm of breast (principal) ==